=== PATIENT | male | born 1995 | race African-American/Black ===

== ENCOUNTER 2018-10-04 06:42 | Emergency (ER) | payer BC ==
[~2018-10-04] VITALS: Ht 182.9 cm; Wt 79.4 kg
[2018-10-04] MEDS ORDERED: FAMOTIDINE 20 MG/2 ML VIAL IV ONE (07:29)
[2018-10-04] MEDS ORDERED: DIPHENHYDRAMINE HCL INJ 50 MG/ML VIAL ONE (07:29)
[2018-10-04] MEDS ORDERED: METHYLPREDNISOLONE SOD SUCC 125 MG/2ML VIAL ONE (07:29)
[2018-10-04] MEDS ORDERED: PREDNISONE20 MG PO (07:42)
[2018-10-04] MEDS ORDERED: RANITIDINE HCL150 MG PO (07:44)
[2018-10-04] MEDS ORDERED: DIPHENHYDRAMINE HCL INJ 50 MG/ML VIAL IV STA (07:47)
[2018-10-04] MEDS ORDERED: METHYLPREDNISOLONE SOD SUCC 125 MG/2ML VIAL IV STA (07:47)
[2018-10-04] MEDS ORDERED: FAMOTIDINE 20 MG/2 ML VIAL IV STA (07:47)
[2018-10-04 07:52] VITALS: BP 112/62
== END 2018-10-04 07:57 | disposition home or self-care (01) ==
LOC: FSED 06:42
DX: L50.0 Allergic urticaria (principal); T61.784A Other shellfish poisoning, undetermined, initial encounter
CPT/HCPCS: 96374; 96375; 99283; J1200; J2930